=== PATIENT | female | born 1945 | race Hispanic/Latino ===

== ENCOUNTER 2019-04-19 20:39 | Inpatient (IN) | payer OTHER ==
[2019-04-19] MEDS ORDERED: FENTANYL CITR 100 MCG/2 ML ONE (22:45)
[2019-04-19] MEDS ORDERED: NA CHLORIDE 0.9% 500 ML ONE (22:45)
[2019-04-19] MEDS ORDERED: CEFTRIAXONE/SWI 1gm 1 GM/10 ML SYR ONE (22:46)
[2019-04-19] MEDS ORDERED: NA CHLORIDE 0.9% 1,000 ML ONE (22:46)
[2019-04-19] MEDS ORDERED: METRONIDAZOLE 500mg IVPB 500 MG/100 ML BAG IV ONE (22:46)
[2019-04-19 23:15] LABS: Protime INR 0.99
[2019-04-19 23:16] LABS: Absolute Lymphocytes (CBC) 1.8 K/uL (0.7-4.9); Absolute Monocytes 0.7 K/uL (0.1-1.3); Absolute Neutrophil 10.5 K/uL (1.8-8.0); Basophils % 0.2 % (0-1.3); Eosinophils % 0.9 % (0-4.4); Lymphocytes % 13.5 % (15.3-44.8); MPV 11.1 fL (7.6-11.3); Monocytes % 5.6 % (3.3-12.3); RBC Red Blood Cell Count 4.66 M/uL (3.86-4.86)
[2019-04-19 23:18] LABS: ALT/SGPT 26 U/L (12-78); AST/SGOT 15 U/L (15-37); Albumin 3.4 g/dL (3.4-5.0); Alkaline Phosphatase 105 U/L (45-117); BUN Blood Urea Nitrogen 16 mg/dL (7-18); Bicarbonate 25 mmol/L (21-32); Bilirubin Direct 0.1 mg/dL (0-0.2); Bilirubin Total 0.5 mg/dL (0.2-1.0); Glucose Level 108 mg/dL (74-106); Lipase 115 U/L (73-393); Magnesium 1.8 mg/dL (1.8-2.4); NT PRO-BNP 124 pg/mL (<125); Potassium 3.1 mmol/L (3.5-5.1); Protein, Total 7.6 g/dL (6.4-8.2); Sodium Level 141 mmol/L (136-145); Troponin (Emerg Dept Use Only) < 0.02 ng/mL (0.0-0.045)
[2019-04-19] MEDS ORDERED: ONDANSETRON 4 MG/2 ML VIAL ONE (23:27)
[2019-04-19 23:33] LABS: Urine Blood TRACE (NEG); Urine Glucose NEGATIVE (NEG); Urine Protein TRACE (NEG); Urine Specific Gravity 1.025 (1.005-1.030); Urine pH 5.5 (5.0-7.0)
[2019-04-19] MEDS ORDERED: CIPROFLOXACIN 400mg IV 400 MG/200 ML BAG IV ONE (23:33)
[2019-04-20] MEDS ORDERED: NS KCL 20MEQ 1,000 ML IV ONE (00:21)
[2019-04-20] MEDS ORDERED: KCL 20 MEQ/100 mL IVPB 20 MEQ/100 ML BAG IV ONE (00:21)
--- NOTE | 2019-04-20 01:25 | ER ---
Nurse's Notes [facility] Name: Catie Cerna Age: 74 yrs Sex: Female : 1945 Arrival Date: 04/19/2019 Time: 20:43 Bed 15 Private MD: Solis Mccain Diagnosis: Abdominal tenderness;Diverticulitis of large intestine without perforation or abscess without bleeding-proximal sigmoid;Type 2 diabetes mellitus Presentation: 04/19 20:46 Presenting complaint: Child states: "She has had lower abdominal pain for about an hour jd3 and a half. no nausea, vomiting, diarrhea.". Transition of care: patient was not received from another setting of care. Onset of symptoms was April 19, 2019. Risk Assessment: Do you want to hurt yourself or someone else? Patient reports no desire to harm self or others. Initial Sepsis Screen: Does the patient meet any 2 criteria? No. Patient's initial sepsis screen is negative. Does the patient have a suspected source of infection? No. Patient's initial sepsis screen is negative. Care prior to arrival: None. 20:46 Method Of Arrival: Wheelchair jd3 20:46 Acuity: DARLINE 3 jd3 Triage Assessment: 20:58 General: Appears in no apparent distress. uncomfortable. Pain: Complains of pain in wh right lower quadrant and left lower quadrant Pain does not radiate. Pain currently is 9 out of 10 on a pain scale. Quality of pain is described as aching, Pain began 2 hours ago. Historical: - Allergies: 20:48 No Known Allergies; jd3 - PMHx: 20:48 Dementia; High Cholesterol; Diabetes - NIDDM; Hypertension; Anxiety; jd3 - PSHx: 20:48 Cholecystectomy; ; jd3 - Immunization history:: Adult Immunizations up to date. - Social history:: Smoking status: Patient uses tobacco products, smokes one pack cigarettes per day. - Ebola Screening: : Patient negative for fever greater than or equal to 101.5 degrees Fahrenheit, and additional compatible Ebola Virus Disease symptoms. - Family history:: not pertinent. Screenin:58 Abuse screen: Denies threats or abuse. Denies injuries from another. Nutritional wh screening: No deficits noted. Tuberculosis screening: No symptoms or risk factors identified. Fall Risk None identified. Assessment: 21:04 Neuro: Level of Consciousness is awake, alert, obeys commands, Oriented to person, wh place, time, situation. Cardiovascular: Heart tones S1 S2 Capillary refill < 3 seconds. Respiratory: Airway is patent Respiratory effort is even, unlabored, Respiratory pattern is regular, symmetrical, Breath sounds are clear bilaterally. GI: Bowel sounds present X 4 quads. Abd is soft and non tender X 4 quads. Reports lower abdominal pain, since 2 hours ago. : No signs and/or symptoms were reported regarding the genitourinary system. EENT: No signs and/or symptoms were reported regarding the EENT system. Derm: Skin is intact, is healthy with good turgor, Skin is pink, warm \\T\\ dry. normal. Musculoskeletal: Range of motion: intact in all extremities. 22:09 Reassessment: Patient appears in no apparent distress at this time. Patient and/or wh family updated on plan of care and expected duration. Pain level reassessed. Patient is alert, oriented x 3, equal unlabored respirations, skin warm/dry/pink. 23:31 Reassessment: Patient appears in no apparent distress at this time. Patient and/or wh family updated on plan of care and expected duration. Pain level reassessed. Patient is alert, oriented x 3, equal unlabored respirations, skin warm/dry/pink. 04/20 00:25 General: Appears in no apparent distress. comfortable, Behavior is calm, cooperative, jd3 appropriate for age. Pain: Denies pain. Neuro: Level of Consciousness is awake, alert, obeys commands, Oriented to person, place, time, situation. Cardiovascular: Denies chest pain, Capillary refill < 3 seconds Patient's skin is warm and dry. Respiratory: Airway is patent Respiratory effort is even, unlabored, Respiratory pattern is regular, symmetrical, Denies shortness of breath. GI: Abdomen is round obese, Patient currently denies abdominal pain, constipation, diarrhea, nausea, vomiting. : No signs and/or symptoms were reported regarding the genitourinary system. EENT: No signs and/or symptoms were reported regarding the EENT system. Derm: Skin is intact, Skin is dry, Skin is normal, Skin temperature is warm. Musculoskeletal: Circulation, motion, and sensation intact. Range of motion: intact in all extremities. 01:21 Reassessment: Patient appears in no apparent distress at this time. Patient and/or jd3 family updated on plan of care and expected duration. Pain level reassessed. Patient is alert, oriented x 3, equal unlabored respirations, skin warm/dry/pink. provider at bedside. 02:26 Reassessment: Patient appears in no apparent distress at this time. Patient and/or jd3 family updated on plan of care and expected duration. Pain level reassessed. Patient is alert, oriented x 3, equal unlabored respirations, skin warm/dry/pink. awaiting room assignment. IV fluids infusing at order rate. no pain reported. even and unlabored respirations. 03:39 Reassessment: Patient appears in no apparent distress at this time. Patient and/or jd3 family updated on plan of care and expected duration. Pain level reassessed. Patient is alert, oriented x 3, equal unlabored respirations, skin warm/dry/pink. awaiting room assignment. 04:01 Reassessment: Patient appears in no apparent distress at this time. Patient and/or jd3 family updated on plan of care and expected duration. Pain level reassessed. Patient is alert, oriented x 3, equal unlabored respirations, skin warm/dry/pink. charting continued in [facility]. Patient denies pain at this time. Vital Signs: 04/19 20:48 BP 140 / 78; Pulse 66; Resp 19 S; Temp 97.7(TE); Pulse Ox 99% on R/A; Weight 86.18 kg [facility] (R); Height 4 ft. 11 in. (149.86 cm) (R); Pain 10/10; 21:06 BP 156 / 62; Pulse 62; Resp 18; Temp 98.6; Pulse Ox 98% on R/A; wh 22:06 BP 145 / 67; Pulse 63; Resp 18; Pulse Ox 100% on R/A; wh 23:34 BP 137 / 84; Pulse 69; Resp 17; Pulse Ox 97% on R/A; wh 04/20 00:32 BP 121 / 83; Pulse 73; Resp 20 S; Pulse Ox 95% on R/A; Pain 0/10; jd3 01:20 BP 143 / 81; Pulse 70; Resp 20 S; Pulse Ox 98% on R/A; Pain 0/10; jd3 02:25 BP 135 / 69; Pulse 69; Resp 16 S; Pulse Ox 97% on R/A; Pain 0/10; jd3 03:38 BP 124 / 74; Pulse 70; Resp 19 S; Pulse Ox 97% on R/A; Pain 0/10; jd3 10:43 BP 128 / 72; Pulse 60; Resp 18; Temp 97.7(TE); Pulse Ox 99% on R/A; Pain 3/10; rb1 04/19 20:48 Body Mass Index 38.37 (86.18 kg, 149.86 cm) jd3 ED Course: 04/19 20:43 Patient arrived in ED. es 20:44 Solis Mccain MD is Private Physician. es 20:47 Triage completed. jd3 20:49 Arm band placed on. jd3 20:58 Autumn De Santiago is Primary Nurse. 20:59 Patient has correct armband on for positive identification. Pulse ox on. NIBP on. 21:10 Lukas Ellsworth MD is Attending Physician. trae 21:19 Radiology exam delayed due to lab results not completed at this time. (BUN/Creatinine) vm2 IV insertion attempt and/or patient not having appropriate IV at this time. 21:51 Radiology exam delayed due to lab results not completed at this time. (BUN/Creatinine). vm2 21:53 XRAY Chest (1 view) In Process Unspecified. EDMS 22:05 Inserted saline lock: 22 gauge in right antecubital area, using aseptic technique. Blood collected. 04/20 00:20 CT Abd/Pelvis - IV Contrast Only In Process Unspecified. EDMS 01:23 Katia Castaneda MD is Hospitalizing Provider. trae 03:59 No provider procedures requiring assistance completed. IV is patent, is intact, with jd3 fluids infusing freely, dressing clean and intact.. Patient admitted, IV remains in place. 11:06 No provider procedures requiring assistance completed. Patient admitted, IV remains in rb1 place. Administered Medications: Discontinued: NS 0.9% 1000 ml IV at 125 ml/hr continuous 04/19 22:40 Drug: NS 0.9% 500 ml Route: IV; Rate: bolus; Site: right antecubital; 23:36 Follow up: Response: No adverse reaction; IV Status: Completed infusion 22:41 Drug: Rocephin - (cefTRIAXone) 1 grams Route: IVPB; Infused Over: 30 mins; Site: right wh antecubital; 23:36 Follow up: Response: No adverse reaction 22:41 Drug: Flagyl 500 mg Volume: 100 ml; Route: IVPB; Rate: 200 ml/hr; Infused Over: 30 wh mins; Site: right antecubital; 23:37 Follow up: Response: No adverse reaction; IV Status: Completed infusion 22:41 Drug: fentaNYL (PF) 25 mcg Route: IVP; Site: right antecubital; 23:37 Follow up: Response: No adverse reaction 22:42 Not Given (Duplicate Order): fentaNYL (PF) 25 mcg IVP once 22:42 Drug: Zofran 4 mg Route: IVP; Site: right antecubital; 23:37 Follow up: Response: No adverse reaction 23:13 Drug: NS 0.9% 1000 ml Route: IV; Rate: 125 ml/hr; Site: right antecubital; 23:36 Follow up: Response: No adverse reaction; IV Status: Order to discontinue infusion 04/20 00:24 Follow up: Response: No adverse reaction; IV Status: Order to discontinue infusion; IV jd3 Intake: 125ml 04/19 23:23 Drug: Cipro 400 mg Volume: 200 ml; Route: IVPB; Infused Over: 60 mins; Site: right antecubital; 23:38 Follow up: Response: No adverse reaction; IV Status: Completed infusion 04/20 00:24 Drug: NS 0.9% with KCl 20 mEq/L 1000 ml Route: IV; Rate: 125 ml/hr; Site: right [facility] antecubital; 03:59 Follow up: Response: No adverse reaction; IV Status: Infusion continued upon admission jd3 00:24 Drug: Potassium Chloride 20 mEq Route: IV; Rate: per protocol; Site: right antecubital; jd3 02:24 Follow up: Response: No adverse reaction; IV Status: Completed infusion; IV Intake: jd3 100ml Intake: 00:24 IV: 125ml; Total: 125ml. jd3 02:24 IV: 100ml; Total: 225ml. jd3 Outcome: 01:25 Decision to Hospitalize by Provider. trae 04:00 Admitted to ER Hold. Please see [facility] for further documentation. jd3 04:00 Condition: stable 04:00 Instructed on the need for admit, Demonstrated understanding of instructions. 11:05 Patient left the ED. rb1 11:06 Admitted to Med/surg accompanied by tech, family with patient, via wheelchair, room rb1 201, with chart, Report called to CLAYTON Cornejo 11:06 Condition: stable 11:06 Instructed on the need for admit. Signatures: Dispatcher [employer] Lukas Valero MD MD cha Salyer, Angelic Rosenberg, RN RN rb1 Briana Arauz [facility] Autumn De Santiago Jonathon, RN RN jd3
--- NOTE | 2019-04-20 01:26 | EDPHYS ---
Physician Documentation [facility] Name: Catie Cerna Age: 74 yrs Sex: Female : 1945 Arrival Date: 04/19/2019 Time: 20:43 Bed 15 Private MD: Solis Mccain ED Physician Lukas Ellsworth HPI: 04/19 21:57 This 74 yrs old Female presents to ER via Wheelchair with complaints of trae Abdominal Pain. 21:57 The patient presents with abdominal pain in the lower abdomen. Onset: The trae symptoms/episode began/occurred just prior to arrival. The symptoms do not radiate. Associated signs and symptoms: none. The symptoms are described as crampy, dull. Modifying factors: The symptoms are alleviated by nothing, the symptoms are aggravated by nothing. Severity of pain: At its worst the pain was moderate in the emergency department the pain has improved mildly. The patient has not experienced similar symptoms in the past. Historical: - Allergies: 20:48 No Known Allergies; jd3 - PMHx: 20:48 Dementia; High Cholesterol; Diabetes - NIDDM; Hypertension; Anxiety; jd3 - PSHx: 20:48 Cholecystectomy; ; jd3 - Immunization history:: Adult Immunizations up to date. - Social history:: Smoking status: Patient uses tobacco products, smokes one pack cigarettes per day. - Ebola Screening: : Patient negative for fever greater than or equal to 101.5 degrees Fahrenheit, and additional compatible Ebola Virus Disease symptoms. - Family history:: not pertinent. ROS: 21:57 Constitutional: Negative for fever, chills, and weight loss, Eyes: Negative for injury, trae pain, redness, and discharge, ENT: Negative for injury, pain, and discharge, Neck: Negative for injury, pain, and swelling, Cardiovascular: Negative for chest pain, palpitations, and edema, Respiratory: Negative for shortness of breath, cough, wheezing, and pleuritic chest pain, Back: Negative for injury and pain, : Negative for injury, bleeding, discharge, and swelling, MS/Extremity: Negative for injury and deformity, Skin: Negative for injury, rash, and discoloration, Neuro: Negative for headache, weakness, numbness, tingling, and seizure, Psych: Negative for depression, anxiety, suicide ideation, homicidal ideation, and hallucinations, Allergy/Immunology: Negative for hives, rash, and allergies, Endocrine: Negative for neck swelling, polydipsia, polyuria, polyphagia, and marked weight changes, Hematologic/Lymphatic: Negative for swollen nodes, abnormal bleeding, and unusual bruising. 21:57 Abdomen/GI: Positive for abdominal pain, of the right lower quadrant and left lower quadrant. Exam: 21:57 Constitutional: This is a well developed, well nourished patient who is awake, alert, trae and in no acute distress. Head/Face: Normocephalic, atraumatic. Eyes: Pupils equal round and reactive to light, extra-ocular motions intact. Lids and lashes normal. Conjunctiva and sclera are non-icteric and not injected. Cornea within normal limits. Periorbital areas with no swelling, redness, or edema. ENT: Nares patent. No nasal discharge, no septal abnormalities noted. Tympanic membranes are normal and external auditory canals are clear. Oropharynx with no redness, swelling, or masses, exudates, or evidence of obstruction, uvula midline. Mucous membranes moist. Neck: Trachea midline, no thyromegaly or masses palpated, and no cervical lymphadenopathy. Supple, full range of motion without nuchal rigidity, or vertebral point tenderness. No Meningismus. Chest/axilla: Normal chest wall appearance and motion. Nontender with no deformity. No lesions are appreciated. Cardiovascular: Regular rate and rhythm with a normal S1 and S2. No gallops, murmurs, or rubs. Normal PMI, no JVD. No pulse deficits. Respiratory: Lungs have equal breath sounds bilaterally, clear to auscultation and percussion. No rales, rhonchi or wheezes noted. No increased work of breathing, no retractions or nasal flaring. Back: No spinal tenderness. No costovertebral tenderness. Full range of motion. Female : Normal external genitalia. Skin: Warm, dry with normal turgor. Normal color with no rashes, no lesions, and no evidence of cellulitis. MS/ Extremity: Pulses equal, no cyanosis. Neurovascular intact. Full, normal range of motion. Neuro: Awake and alert, GCS 15, oriented to person, place, time, and situation. Cranial nerves II-XII grossly intact. Motor strength 5/5 in all extremities. Sensory grossly intact. Cerebellar exam normal. Normal gait. Psych: Awake, alert, with orientation to person, place and time. Behavior, mood, and affect are within normal limits. 21:57 Abdomen/GI: Inspection: abdomen appears normal, Bowel sounds: normal, Palpation: moderate abdominal tenderness, in the right lower quadrant and left lower quadrant, Liver: no appreciated palpable abnormalities, Hernia: not appreciated. 04/20 01:21 Abdomen/GI: Palpation: voluntary guarding, is elicited in the right lower quadrant and trae left lower quadrant. Vital Signs: 04/19 20:48 BP 140 / 78; Pulse 66; Resp 19 S; Temp 97.7(TE); Pulse Ox 99% on R/A; Weight 86.18 kg jd3 (R); Height 4 ft. 11 in. (149.86 cm) (R); Pain 10/10; 21:06 BP 156 / 62; Pulse 62; Resp 18; Temp 98.6; Pulse Ox 98% on R/A; wh 22:06 BP 145 / 67; Pulse 63; Resp 18; Pulse Ox 100% on R/A; wh 23:34 BP 137 / 84; Pulse 69; Resp 17; Pulse Ox 97% on R/A; wh 04/20 00:32 BP 121 / 83; Pulse 73; Resp 20 S; Pulse Ox 95% on R/A; Pain 0/10; jd3 01:20 BP 143 / 81; Pulse 70; Resp 20 S; Pulse Ox 98% on R/A; Pain 0/10; jd3 02:25 BP 135 / 69; Pulse 69; Resp 16 S; Pulse Ox 97% on R/A; Pain 0/10; jd3 03:38 BP 124 / 74; Pulse 70; Resp 19 S; Pulse Ox 97% on R/A; Pain 0/10; jd3 10:43 BP 128 / 72; Pulse 60; Resp 18; Temp 97.7(TE); Pulse Ox 99% on R/A; Pain 3/10; rb1 04/19 20:48 Body Mass Index 38.37 (86.18 kg, 149.86 cm) jd3 MDM: 04/19 21:10 Patient medically screened. [facility] 21:57 Data reviewed: vital signs, nurses notes, lab test result(s), EKG, radiologic studies. [facility] 04/19 21:14 Order name: Basic Metabolic Panel [facility] 04/19 21:14 Order name: CBC with Diff [facility] 04/19 21:14 Order name: LFT's [facility] 04/19 21:14 Order name: Magnesium [facility] 04/19 21:14 Order name: NT PRO-BNP [facility] 04/19 21:14 Order name: PT-INR; Complete Time: 23:35 [facility] 04/19 21:14 Order name: Troponin (emerg Dept Use Only); Complete Time: 23:35 [facility] 04/19 21:14 Order name: Lipase; Complete Time: 23:35 [facility] 04/19 21:14 Order name: Urine Culture [facility] 04/19 21:17 Order name: Basic Metabolic Panel; Complete Time: 23:35 EDMS 04/19 21:17 Order name: CBC with Automated Diff; Complete Time: 23:35 EDMD 04/19 21:17 Order name: Liver (Hepatic) Function; Complete Time: 23:35 EDMS 04/19 21:17 Order name: Magnesium; Complete Time: 23:35 EDMD 04/19 21:17 Order name: NT PRO-BNP; Complete Time: 23:35 EDMD 04/19 21:14 Order name: XRAY Chest (1 view) [facility] 04/19 21:14 Order name: EKG; Complete Time: 21:18 [facility] 04/19 21:14 Order name: Cardiac monitoring; Complete Time: 22:23 [facility] 04/19 21:14 Order name: EKG - Nurse/Tech; Complete Time: 22:24 [facility] 04/19 21:14 Order name: CT Abd/Pelvis - IV Contrast Only [facility] 04/19 21:54 Order name: Urine Dipstick--Ancillary (enter results); Complete Time: 23:35 [facility] 04/19 21:14 Order name: IV Saline Lock; Complete Time: 22:24 [facility] 04/19 21:14 Order name: Labs collected and sent; Complete Time: 22:24 [facility] 04/19 21:14 Order name: O2 Per Protocol; Complete Time: 22:24 [facility] 04/19 21:14 Order name: O2 Sat Monitoring; Complete Time: 22:24 [facility] 04/19 21:14 Order name: Urine Dipstick-Ancillary (obtain specimen); Complete Time: 22:24 [facility] Administered Medications: Discontinued: NS 0.9% 1000 ml IV at 125 ml/hr continuous 22:40 Drug: NS 0.9% 500 ml Route: IV; Rate: bolus; Site: right antecubital; 23:36 Follow up: Response: No adverse reaction; IV Status: Completed infusion 22:41 Drug: Rocephin - (cefTRIAXone) 1 grams Route: IVPB; Infused Over: 30 mins; Site: right antecubital; 23:36 Follow up: Response: No adverse reaction 22:41 Drug: Flagyl 500 mg Volume: 100 ml; Route: IVPB; Rate: 200 ml/hr; Infused Over: 30 wh mins; Site: right antecubital; 23:37 Follow up: Response: No adverse reaction; IV Status: Completed infusion 22:41 Drug: fentaNYL (PF) 25 mcg Route: IVP; Site: right antecubital; 23:37 Follow up: Response: No adverse reaction 22:42 Not Given (Duplicate Order): fentaNYL (PF) 25 mcg IVP once 22:42 Drug: Zofran 4 mg Route: IVP; Site: right antecubital; 23:37 Follow up: Response: No adverse reaction 23:13 Drug: NS 0.9% 1000 ml Route: IV; Rate: 125 ml/hr; Site: right antecubital; 23:36 Follow up: Response: No adverse reaction; IV Status: Order to discontinue infusion 04/20 00:24 Follow up: Response: No adverse reaction; IV Status: Order to discontinue infusion; IV jd3 Intake: 125ml 04/19 23:23 Drug: Cipro 400 mg Volume: 200 ml; Route: IVPB; Infused Over: 60 mins; Site: right antecubital; 23:38 Follow up: Response: No adverse reaction; IV Status: Completed infusion 04/20 00:24 Drug: NS 0.9% with KCl 20 mEq/L 1000 ml Route: IV; Rate: 125 ml/hr; Site: right jd3 antecubital; 03:59 Follow up: Response: No adverse reaction; IV Status: Infusion continued upon admission jd3 00:24 Drug: Potassium Chloride 20 mEq Route: IV; Rate: per protocol; Site: right antecubital; jd3 02:24 Follow up: Response: No adverse reaction; IV Status: Completed infusion; IV Intake: jd3 100ml Disposition: 04/20/19 01:25 Hospitalization ordered by Divinski, Ianir for Inpatient Admission. Preliminary diagnosis are Abdominal tenderness, Diverticulitis of large intestine without perforation or abscess without bleeding - proximal sigmoid, Type 2 diabetes mellitus. - Bed requested for Telemetry/MedSurg (Inpatient). - Status is Inpatient Admission. rb1 - Condition is Fair. - Problem is new. - Symptoms have improved. UTI on Admission? No Signatures: Dispatcher [employer] EDLukas Hardy MD MD cha Solis, Maria ms Barber, Rebecca, RN RN rb1 Autumn De Santiago Cuco Clifford RN RN jd3 Corrections: (The following items were deleted from the chart) 07:08 01:25 Hospitalization Ordered by Katia Castaneda MD for Inpatient Admission. Preliminary ms diagnosis is Abdominal tenderness; Diverticulitis of large intestine without perforation or abscess without bleeding - proximal sigmoid; Type 2 diabetes mellitus. Bed requested for Telemetry/MedSurg (Inpatient). Status is Inpatient Admission. Condition is Fair. Problem is new. Symptoms have improved. UTI on Admission? No. [facility] 10:35 07:08 04/20/2019 01:25 Hospitalization Ordered by Katia Castaneda MD for Inpatient ms Admission. Preliminary diagnosis is Abdominal tenderness; Diverticulitis of large intestine without perforation or abscess without bleeding - proximal sigmoid; Type 2 diabetes mellitus. Bed requested for [facility] ER HOLD. Status is Inpatient Admission. Condition is Fair. Problem is new. Symptoms have improved. UTI on Admission? No. ms 11:05 10:35 04/20/2019 01:25 Hospitalization Ordered by Katia Castaneda MD for Inpatient rb1 Admission. Preliminary diagnosis is Abdominal tenderness; Diverticulitis of large intestine without perforation or abscess without bleeding - proximal sigmoid; Type 2 diabetes mellitus. Bed requested for Telemetry/MedSurg (Inpatient). Status is Inpatient Admission. Condition is Fair. Problem is new. Symptoms have improved. UTI on Admission? No. ms
--- NOTE | 2019-04-20 03:26 | P.HP ---
Certification for Inpatient Patient admitted to: Inpatient With expected LOS: >2 Midnights Practitioner: I am a practitioner with admitting privileges, knowledge of patient current condition, hospital course, and medical plan of care. Services: Services provided to patient in accordance with Admission requirements found in Title 42 Section 412.3 of the Code of Federal Regulations Patient History Date of Service: 04/20/19 Reason for admission: diverticulitis History of Present Illness: Ms Cerna is a 74 years old woman with history of dementia, dyslipidemia, DM II , HTN, who start with lower abdominal pain yesterday afternoon. The pain was constant, 9/10 of intensity, no radiated, denied nausea, vomiting, fever or chills. The patient has had 1 episode of diarrhea. Lab work shows leukocytosis, and hypokalemia. CT abd/pelvis consistent with proximal sigmoid diverticulitis. Home medications list reviewed: Yes - Past Medical/Surgical History -: DM II -: HTN -: Dyslipidemia -: dementia -: Cholecystectomy -: - Family History Family History: Reviewed- Non-Contributory - Social History Smoking Status: Current every day smoker Counseled patient to stop smoking for: less than 10 minutes Smoking therapy provided: Yes Patient receptive to therapy: No Alcohol use: No CD- Drugs: No Place of Residence: Home Review of Systems 10-point ROS is otherwise unremarkable Physical Examination - Physical Exam General: Alert, In no apparent distress HEENT: Atraumatic, PERRLA, Mucous membr. moist/pink, EOMI, Sclerae nonicteric Neck: Supple, 2+ carotid pulse no bruit, No LAD, Without JVD or thyroid abnormality Respiratory: Clear to auscultation bilaterally, Normal air movement Cardiovascular: Regular rate/rhythm, Normal S1 S2 Gastrointestinal: Normal bowel sounds, Tenderness (lower abdomen) Musculoskeletal: No tenderness Integumentary: No rashes Neurological: Normal gait, Normal speech, Normal strength at 5/5 x4 extr, Normal tone, Normal affect Lymphatics: No axilla or inguinal lymphadenopathy - Studies Laboratory Data (last 24 hrs) 04/19/19 22:20: PT 11.7, INR 0.99 04/19/19 22:20: WBC 13.2 H, Hgb 14.7, Hct 44.0, Plt Count 200 04/19/19 22:20: Sodium 141, Potassium 3.1 L, BUN 16, Creatinine 0.78, Glucose 108 H, Magnesium 1.8, Total Bilirubin 0.5, AST 15, ALT 26, Alkaline Phosphatase 105, Lipase 115 Assessment and Plan - Problems (Diagnosis) (1) Diverticulitis large intestine Current Visit: Yes Status: Acute Qualifiers: Diverticulitis bleeding: without bleeding Diverticulitis complication: without perforation or abscess Qualified Code(s): K57.32 - Diverticulitis of large intestine without perforation or abscess without bleeding (2) Tobacco abuse Current Visit: Yes Status: Acute (3) Diabetes mellitus Current Visit: Yes Status: Acute Qualifiers: Diabetes mellitus type: type 2 Diabetes mellitus complication status: with other specified complication (4) HTN (hypertension) Current Visit: Yes Status: Acute Qualifiers: Hypertension type: essential hypertension Qualified Code(s): I10 - Essential (primary) hypertension - Plan Will admit the patient due to acute diverticulitis. Will order IV Cipro and Flagyl. Continue IV fluids and symptomatic medication for pain. - Advance Directives Does patient have a Living Will: No Does patient have a Durable POA for Healthcare: No - Code Status/Comfort Care Code Status Assessed: Yes Code Status: Full Code
[2019-04-20] MEDS ORDERED: ACETAMINOPHEN 500 MG TAB PO PRN (03:48)
[2019-04-20] MEDS ORDERED: ONDANSETRON 4 MG/2 ML VIAL IV PRN (03:48)
[2019-04-20] MEDS: KETOROLAC 30 MG/ML INJ IV PRN ×3 (04:33→20:56)
[2019-04-20] MEDS ORDERED: KETOROLAC 30 MG/ML INJ ONE (04:41)
[2019-04-20] MEDS ORDERED: MORPHINE 2 MG/ML SYR IV ONE (05:06)
[2019-04-20] MEDS ORDERED: MORPHINE 2 MG/ML SYR ONE (05:27)
[2019-04-20] MEDS: INSULIN -REGULAR HUMAN 50 UNIT/0.5 ML ML SQ SCH ×2 (07:30→11:30)
--- NOTE | 2019-04-20 08:07 | EKG ---
Test Date: 2019-04-19 Test Time: 20:34:13 Individualized Education Plan Aide: TANIYA MEASUREMENT RESULTS: Intervals: Rate: 70 IN: 168 QRSD: 92 QT: 410 QTc: 442 [place]: P: 77 IN: 168 QRS: 50 T: 43 INTERPRETIVE STATEMENTS: Normal sinus rhythm Normal ECG No previous ECG available for comparison Electronically Signed On 04-20-19 08:06:37 CDT by Raymon Jimenez
[2019-04-20] MEDS: CIPROFLOXACIN 400mg IV 400 MG/200 ML BAG IV SCH ×2 (09:00→20:56)
[2019-04-20] MEDS: ENOXAPARIN 40 MG/0.4 ML SQ SCH (09:00)
[2019-04-20] MEDS: METRONIDAZOLE 500mg IVPB 500 MG/100 ML BAG IV SCH ×2 (09:00→17:09)
[2019-04-20] MEDS ORDERED: ENOXAPARIN 40 MG/0.4 ML SQ ONE (09:39)
[2019-04-20] MEDS ORDERED: CIPROFLOXACIN 400mg IV 400 MG/200 ML BAG IV ONE (09:40)
[2019-04-20] MEDS ORDERED: METRONIDAZOLE 500mg IVPB 500 MG/100 ML BAG IV ONE (09:40)
[2019-04-20] MEDS ORDERED: MAGNESIUM SULFATE 1 gm IVPB 1 GM/100 ML BAG IV ONE (11:29)
--- NOTE | 2019-04-20 11:48 | RAD REPORT ---
EXAM DESCRIPTION: RAD - Chest Single View - 04/19/2019 9:52 pm CLINICAL HISTORY: ABDOMINAL DISTENTION Chest pain. COMPARISON: No comparisons FINDINGS: Portable technique limits examination quality. The lungs are mildly emphysematous but grossly clear. The heart is upper limit of normal in size. No displaced fractures.
--- NOTE | 2019-04-20 15:52 | P.PN ---
Date of Service: 04/20/19 pt wasseen earlier this am by my colleague DR Pretty 74 Y/o woman with PMHx of HTN,HLD admitted for acute diverticulitis pt seen and examined IVF hydration IV abx cipro and flagyl advance diet as tolerated
[2019-04-20 17:39] LABS: Absolute Neutrophil 5.1 K/uL (1.8-8.0); Basophils % 0.2 % (0-1.3); Eosinophils % 1.7 % (0-4.4); Hematocrit 42.9 % (36.0-45.0); Lymphocytes % 24.7 % (15.3-44.8); MPV 10.9 fL (7.6-11.3); Monocytes % 11.7 % (3.3-12.3); RBC Red Blood Cell Count 4.51 M/uL (3.86-4.86)
[2019-04-20 20:46] LABS: Potassium 3.6 mmol/L (3.5-5.1)
[2019-04-20] MEDS: ATORVASTATIN 10 MG TAB PO SCH (20:55)
[2019-04-20] MEDS: DONEPEZIL HCL 5 MG TAB PO SCH (20:55)
[2019-04-20] MEDS ORDERED: POTASSIUM 25 MEQ EFFERV TAB PO ONE (23:32)
[2019-04-21] MEDS: METRONIDAZOLE 500mg IVPB 500 MG/100 ML BAG IV SCH ×3 (00:51→16:18)
[2019-04-21] MEDS: SIMETHICONE 80 MG TAB PO PRN ×4 (01:08→23:28)
[2019-04-21 04:15] LABS: Absolute Lymphocytes (CBC) 1.3 K/uL (0.7-4.9); Absolute Monocytes 0.8 K/uL (0.1-1.3); Absolute Neutrophil 5.4 K/uL (1.8-8.0); Basophils % 0.4 % (0-1.3); Eosinophils % 1.9 % (0-4.4); Hematocrit 40.2 % (36.0-45.0); Lymphocytes % 17.4 % (15.3-44.8); MPV 10.2 fL (7.6-11.3); Monocytes % 10.8 % (3.3-12.3); RBC Red Blood Cell Count 4.22 M/uL (3.86-4.86)
[2019-04-21 04:35] LABS: Magnesium 2.1 mg/dL (1.8-2.4); Potassium 3.8 mmol/L (3.5-5.1)
[2019-04-21] MEDS ORDERED: POTASSIUM 25 MEQ EFFERV TAB PO ONE (05:43)
[2019-04-21] MEDS: LEVOTHYROXINE SOD 0.1 MG TAB PO SCH (06:33)
[2019-04-21] MEDS: CIPROFLOXACIN 400mg IV 400 MG/200 ML BAG IV SCH ×2 (08:59→21:52)
[2019-04-21] MEDS: ESCITALOPRAM 20 MG TAB PO SCH (09:00)
[2019-04-21] MEDS: ENOXAPARIN 40 MG/0.4 ML SQ SCH (09:00)
[2019-04-21] MEDS: METOPROLOL XL 100 MG TAB PO SCH (09:00)
[2019-04-21] MEDS: LISINOPRIL 20 MG TAB PO SCH (09:00)
[2019-04-21] MEDS: AMLODIPINE 5 MG TAB PO SCH (09:01)
[2019-04-21] MEDS: KETOROLAC 30 MG/ML INJ IV PRN ×2 (09:16→21:50)
[2019-04-21] MEDS: MORPHINE 2 MG/ML SYR IV PRN ×2 (10:35→16:27)
--- NOTE | 2019-04-21 11:05 | P.PN ---
Subjective Date of Service: 04/21/19 Chief Complaint: diverticulitis pt seen and examined still having diarrhea but abdominal pain was better diet advanced to full liquid f/up stool for cdiff Review of Systems 10-point ROS is otherwise unremarkable Physical Examination - Vital Signs Temperature: 97.1 F Blood Pressure: 145/65 Pulse: 66 Respirations: 17 Pulse Ox (%): 96 - Physical Exam General: Alert, Oriented x3 HEENT: Atraumatic, Normocephalic, PERRLA Neck: Supple, JVD not distended Respiratory: Clear to auscultation bilaterally, Normal air movement Cardiovascular: No edema, Regular rate/rhythm, Normal S1 S2 Gastrointestinal: Normal bowel sounds, Soft and benign, Non-distended Musculoskeletal: No clubbing, No swelling Integumentary: No rashes Neurological: Normal strength at 5/5 x4 extr - Studies Microbiology Data (last 24 hrs): 04/19/19 21:45 Clean Catch Urine Harrison Count - Final >100,000 CFU/ML. 04/19/19 21:45 Clean Catch Urine - Final Escherichia Coli Assessment And Plan - Plan asssessment /plan: acute diverticulitis HTN DM plan: IV cipro and flagyl IVF hydration f/up stool studies advance diet as tolerated zofran prn pain mx resume home meds for other medical problems dvt ppx Discharge Plan: Home Plan to discharge in: 48 Hours
[2019-04-21 11:31] LABS: Absolute Lymphocytes (CBC) 1.2 K/uL (0.7-4.9); Absolute Monocytes 0.6 K/uL (0.1-1.3); Absolute Neutrophil 4.2 K/uL (1.8-8.0); Basophils % 0.2 % (0-1.3); Eosinophils % 1.8 % (0-4.4); Lymphocytes % 19.1 % (15.3-44.8); MPV 10.4 fL (7.6-11.3); Monocytes % 9.3 % (3.3-12.3); RBC Red Blood Cell Count 3.98 M/uL (3.86-4.86)
[2019-04-21 11:45] LABS: Potassium 3.9 mmol/L (3.5-5.1)
[2019-04-21 16:25] LABS: Absolute Lymphocytes (CBC) 1.9 K/uL (0.7-4.9); Absolute Monocytes 0.8 K/uL (0.1-1.3); Absolute Neutrophil 3.8 K/uL (1.8-8.0); Basophils % 0.2 % (0-1.3); Eosinophils % 3.3 % (0-4.4); Hematocrit 39.6 % (36.0-45.0); Lymphocytes % 27.6 % (15.3-44.8); MPV 11.1 fL (7.6-11.3); Monocytes % 12.4 % (3.3-12.3); RBC Red Blood Cell Count 4.18 M/uL (3.86-4.86)
[2019-04-21] MEDS: ATORVASTATIN 10 MG TAB PO SCH (21:53)
[2019-04-21] MEDS: DONEPEZIL HCL 5 MG TAB PO SCH (21:53)
[2019-04-22] MEDS: METRONIDAZOLE 500mg IVPB 500 MG/100 ML BAG IV SCH ×2 (02:06→08:51)
[2019-04-22] MEDS: LEVOTHYROXINE SOD 0.1 MG TAB PO SCH (06:08)
[2019-04-22 06:57] LABS: Absolute Lymphocytes (CBC) 1.5 K/uL (0.7-4.9); Absolute Monocytes 0.7 K/uL (0.1-1.3); Basophils % 0.3 % (0-1.3); Eosinophils % 3.2 % (0-4.4); Hematocrit 38.2 % (36.0-45.0); Lymphocytes % 23.8 % (15.3-44.8); MPV 10.6 fL (7.6-11.3); Monocytes % 10.6 % (3.3-12.3)
[2019-04-22 07:18] LABS: Potassium 3.9 mmol/L (3.5-5.1)
[2019-04-22] MEDS: ENOXAPARIN 40 MG/0.4 ML SQ SCH (08:50)
[2019-04-22] MEDS: ESCITALOPRAM 20 MG TAB PO SCH (08:51)
[2019-04-22] MEDS: CIPROFLOXACIN 400mg IV 400 MG/200 ML BAG IV SCH (08:51)
[2019-04-22] MEDS: METOPROLOL XL 100 MG TAB PO SCH (08:51)
[2019-04-22] MEDS: LISINOPRIL 20 MG TAB PO SCH (08:51)
[2019-04-22] MEDS: AMLODIPINE 5 MG TAB PO SCH (08:51)
[2019-04-22] MEDS: SIMETHICONE 80 MG TAB PO PRN (09:01)
--- NOTE | 2019-04-22 12:04 | RAD REPORT ---
EXAM DESCRIPTION: CT ABDOMEN AND PELVIS WITH CONTRAST. 04/19/2019 CLINICAL HISTORY: Abdominal pain. COMPARISON: None. TECHNIQUE: Axial [address] imaging of the abdomen and pelvis performed utilizing intravenous contrast. Reformatted coronal and sagittal images reviewed. A dose reduction technique was utilized with automated exposure control according to patient size. FINDINGS: LOWER THORAX: Minimal bilateral lower lobe atelectasis. The heart is normal in size. ABDOMEN: LIVER/GALLBLADDER: Mildly decreased attenuation due to fatty infiltration. Mild intra and extrahepat ic biliary duct dilatation due to postcholecystectomy status. Common bile duct is 1.4 cm. No obstruct ing stone or mass. SPLEEN/PANCREAS: Normal spleen. Normal pancreas. KIDNEYS/ADRENAL GLANDS: Normal adrenal glands. Normal right and left kidney. RETROPERITONEAL VESSELS/NODES: Normal aorta and inferior vena cava caliber. No adenopathy. BOWEL: Small hiatal hernia. Normal stomach. Small bowel loops appear normal. Normal caliber appendix in the right lower quadrant. A few small intraluminal appendicoliths. Mild descending and proximal s igmoid colon diverticulosis. Short segment of posterior wall thickening within the proximal sigmoid w ith adjacent edema consistent with diverticulitis. No adjacent free air. No loculated fluid collectio n to suggest an abscess. MESENTERY/PERITONEUM: No adenopathy. No ascites. No free air. Tiny fat-containing umbilical hernia. PELVIS: BLADDER: Normal bladder. GENITAL ORGANS: Heterogeneous mildly hyperdense left uterine fundal 4.6 cm mass consistent with fibr oid. Normal ovaries. PERITONEUM: No pelvic free fluid. No pelvic adenopathy. BONES AND SOFT TISSUES: Moderate lower thoracic and lumbar spondylosis. Vacuum disc changes within t he lower thoracic and lumbar spine. Multilevel mild lower lumbosacral diffuse disc bulges. Intact bon y pelvis. Complete evaluation is limited by motion artifact. Several buttock calcifications consisten t with injection granulomas. IMPRESSION: 1. Mild descending and sigmoid colon diverticulosis. Short segment of proximal sigmoid d iverticulitis. No evidence of free air or abscess. 2. Small hiatal hernia. 3. Mild hepatic steatosis. 4. Mild postcholecystectomy biliary dilatation. 5. Left uterine fibroid. Electronically signed by: Lizabeth Roman DO 04/20/2019 12:34 AM CDT Due to temporary technical issues with the PACS/Fluency reporting system, reports are being signed by the in house radiologist as a courtesy to ensure prompt reporting. The interpreting radiologist is f ully responsible for the content of the report.
--- NOTE | 2019-04-22 14:48 | P.DS ---
Admission Date: 04/20/19 Discharge Date: 04/22/19 Disposition: ROUTINE DISCHARGE Discharge Condition: GOOD Reason for Admission: diverticulitis Consultations: GI - Problems (1) UTI (urinary tract infection) Status: Acute (2) Acute kidney injury Status: Acute (3) Diabetes mellitus Status: Acute Qualifiers: Diabetes mellitus type: type 2 Diabetes mellitus complication status: with other specified complication (4) Diverticulitis large intestine Status: Acute Qualifiers: Diverticulitis bleeding: without bleeding Diverticulitis complication: without perforation or abscess Qualified Code(s): K57.32 - Diverticulitis of large intestine without perforation or abscess without bleeding (5) HTN (hypertension) Status: Acute Qualifiers: Hypertension type: essential hypertension Qualified Code(s): I10 - Essential (primary) hypertension (6) Tobacco abuse Status: Acute Brief History of Present Illness: 77 y/o woman with PMhx of DM,CKD,hepatorenal syndrom,liver cirrhosis who was transferred from [facility] for HD,pt was admitted for worsening renal failure and hyponatremia and was found with low Hgb .pt is [place] resident and mainly bed bound.pt was managed in [facility] for anemia and was given 2 units PRBC and for metabolic acidosis was given bicarb with ivf hydration but her renal function continued to worsens and decission was made to start the pt on HD discussed with DR Jones and he recommended sx consult to place HD catheter which can be done tomorrow at the time of my assessment pt denied any complains and was oriented to self only Hospital Course: Overall during the hospital stay patient remained stable Patient was initially admitted to the hospital for acute renal failure, hyponatremia, acute diverticulitis and urinary tract infection. For patient's symptomatic hyponatremia was started on IV fluids here in the hospital. Patient's hyponatremia did resolve here in the hospital with fluids. Patient was alert and oriented x3. Initially patient was having acute metabolic encephalopathy however which resolved after hyponatremia was corrected. For patient's acute renal failure again patient was on IV fluids which did improve her creatinine here in the hospital. Most likely secondary to dehydration secondary to her acute diverticulitis. For patient's acute diverticulitis patient was started on IV ciprofloxacin and Flagyl. Was kept NPO. When patient had some improvement in her diarrhea and abdominal pain patient diet was advanced to full liquid diet. Patient was able to tolerate the full liquid diet well and thus was advanced to a bland diet. At that time patient was able to tolerate her bland diet thus her medication was switched over to oral supplement Flagyl. Patient did not have any further diarrheal episode and no further abdominal pain was noted. Patient denies having any fever chills nausea vomiting at that time as well. Patient thus was discharged home under stable condition was given a prescription for p.o. ciprofloxacin and Flagyl Patient while here in the hospital also was found to have urinary tract infection which was positive for E. coli and was sensitive to oral ciprofloxacin. Patient was asked to follow up with primary care provider in about 1-2 days post discharge and was thus discharged home under stable condition. Patient will follow up colonoscopy in about 6 weeks which she was educated about as well. Vital Signs/Physical Exam: Temp Pulse Resp BP Pulse Ox 98.1 F 54 16 123/67 98 04/22/19 12:00 04/22/19 12:00 04/22/19 12:00 04/22/19 12:00 04/22/19 12:00 General: Alert, In no apparent distress HEENT: Atraumatic, PERRLA, EOMI Neck: Supple, JVD not distended Respiratory: Clear to auscultation bilaterally, Normal air movement Cardiovascular: Regular rate/rhythm, Normal S1 S2 Gastrointestinal: Normal bowel sounds, No tenderness Musculoskeletal: No tenderness Integumentary: No rashes Neurological: Normal speech, Normal tone, Normal affect Lymphatics: No axilla or inguinal lymphadenopathy Laboratory Data at Discharge: WBC 6.4 K/uL (4.3-10.9) 04/22/19 06:32 Hgb 12.8 g/dL (12.0-15.0) 04/22/19 06:32 Hct 38.2 % (36.0-45.0) 04/22/19 06:32 Plt Count 177 K/uL (152-406) 04/22/19 06:32 PT 11.7 SECONDS (9.5-12.5) 04/19/19 22:20 INR 0.99 04/19/19 22:20 Sodium 143 mmol/L (136-145) 04/22/19 06:32 Potassium 3.9 mmol/L (3.5-5.1) 04/22/19 06:32 BUN 6 mg/dL (7-18) L 04/22/19 06:32 Creatinine 0.72 mg/dL (0.55-1.3) 04/22/19 06:32 Glucose 101 mg/dL (74-106) 04/22/19 06:32 Magnesium 2.1 mg/dL (1.8-2.4) 04/21/19 04:08 Total Bilirubin 0.5 mg/dL (0.2-1.0) 04/19/19 22:20 AST 15 U/L (15-37) 04/19/19 22:20 ALT 26 U/L (12-78) 04/19/19 22:20 Alkaline Phosphatase 105 U/L (45-117) 04/19/19 22:20 Lipase 115 U/L (73-393) 04/19/19 22:20 Home Medications: Amlodipine Besylate 5 mg PO DAILY 04/20/19 Donepezil [Aricept*] 10 mg PO BEDTIME 04/20/19 Escitalopram [Lexapro*] 10 mg PO DAILY 04/20/19 Levothyroxine [Synthroid*] 100 mcg PO [id number] 04/20/19 Lisinopril 40 mg PO DAILY 04/20/19 Metoprolol Succinate [Toprol Xl] 100 mg PO DAILY 04/20/19 Pravastatin Sodium 20 mg PO DAILY 04/20/19 Ciprofloxacin HCl 500 mg PO BID #28 tablet 04/22/19 metroNIDAZOLE [Flagyl] 500 mg PO Q8H #42 tablet 04/22/19 New Medications: Ciprofloxacin HCl 500 mg PO BID #28 tablet metroNIDAZOLE [Flagyl] 500 mg PO Q8H #42 tablet Patient Discharge Instructions: Please f.u with PCP and GI doc in 1 to 2 week post discharge. New medication. Ciprofloxacin and Flagyl for 14 days. You will need a colonoscopy in 6 weeks. Diet: [place] Activity: Ad fredrick Followup: Rod Madden MD [ASSOCIATE-ACTIVE - CAN ADMIT] - 1 Week
== END 2019-04-22 13:47 | disposition home or self-care (01) | DRG 391 ==
LOC: ER 20:39 → ERHOLD 04-20 03:27 → 2ND 04-20 10:56
PROVIDERS: ADMIT Internal Medicine; ATTEND Internal Medicine
DX: K57.32 Diverticulitis of large intestine without perforation or abscess without bleeding (principal); G93.41 Metabolic encephalopathy; N39.0 Urinary tract infection, site not specified; E87.1 Hypo-osmolality and hyponatremia; N17.9 Acute kidney failure, unspecified; B96.20 Unspecified Escherichia coli [E. coli] as the cause of diseases classified elsewhere; E86.0 Dehydration; I10 Essential (primary) hypertension; E11.9 Type 2 diabetes mellitus without complications; F17.210 Nicotine dependence, cigarettes, uncomplicated
CPT/HCPCS: 36415; 71045; 74177; 80048; 80076; 81003; 82962; 83690; 83735; 83880; 84132; 84484; 85025; 85610; 87077; 87086; 87088; 87186; 87493; 93005; 96361; 96365; 96366; 96367; 96375; 99285; J0696; J0744; J1650; J2270; J2405; J3010; J3475; J7030; Q9967

== ENCOUNTER 2019-04-30 01:12 | Emergency (ER) | payer OTHER ==
--- OUTSIDE RECORDS SUMMARY | 2019-04-30 01:15 | XMS REPORT | Continuity of Care Document ---
:1945 Author Organization Interface Problems Problem Status Onset Classification Date Comments Source Date Reported Dementia Active Problem 04/15/2019 [facility] HTN - Hypertension Active Problem 04/15/2019 [facility] Hyperlipidemia Active Problem 04/15/2019 [facility] Hypothyroidism Active Problem 04/15/2019 [facility] PBA (<span Active Problem 04/15/2019 [facility] ID="[id number]"> Neuro Confirmed</span>) Memory loss Active Problem 04/15/2019 [facility] Morbid obesity Active Problem 04/15/2019 [facility] Medications Medication Details Route Status Patient Ordering Order Source Instructions Provider Date Donepezil 10 mg=1 Active [facility] hydrochloride 10 tab, PO, 019 [facility] MG Oral Tablet Bedtime, # [Aricept] 30 tab, 4 Refill(s), Pharmacy: [id number] escitalopram 10 10 mg=1 Active [facility] mg oral tablet tab, PO, 018 [facility] Daily, # 30 tab, 0 Refill(s) lisinopril 40 mg 40 mg=1 Active [facility] oral tablet tab, PO, 018 [facility] Daily, # 30 tab, 0 Refill(s) metoprolol 100 100 mg=1 Active [facility] mg oral tablet, tab, PO, 018 [facility] extended release Daily, # 30 tab, 0 Refill(s) amLODIPine 5 mg 5 mg=1 Active [facility] oral tablet tab, PO, 018 [facility] Daily, # 30 tab, 0 Refill(s) levothyroxine 88 88 Active [facility] mcg (0.088 mg) microgram= 018 [facility] oral tablet 1 tab, PO, Daily, # 30 tab, 0 Refill(s) pravastatin 20 20 mg=1 Active [facility] mg oral tablet tab, PO, 018 [facility] Bedtime, # 30 tab, 0 Refill(s) Allergies, Adverse Reactions, Alerts Substance Category Reaction Severity Reaction Status Date Comments Source type Reported No Known Assertion Drug [facility] Medication allergy Neuro Allergies Immunizations Immunization Date Given Site Status Last Updated Comments Source Results Order Results Value Reference Date Interpretation Comments Source Name Range Vital Signs Vital Sign Value Date Comments Source BMI Calculated 39.68 03/15/2019 [facility] Height 144.78 cm 03/15/2019 [facility] Weight 83.182 03/15/2019 [facility] Heart Rate 54 03/15/2019 [facility] Respitory Rate 16 03/15/2019 [facility] Systolic (mm Hg) 141 03/15/2019 [facility] Diastolic (mm Hg) 90 03/15/2019 [facility] Height 144.78 cm 09/25/2018 [facility] Weight 90.909 09/25/2018 [facility] BMI Calculated 43.37 09/25/2018 [facility] Heart Rate 79 09/25/2018 [facility] Respitory Rate 16 09/25/2018 [facility] Systolic (mm Hg) 118 09/25/2018 [facility] Diastolic (mm Hg) 89 09/25/2018 [facility] Encounters Location Location Encounter Encounter Reason Attending ADM DC Status Source Details Type Number For Provider Date Date Visit [facility] Outside [id number] 08/14 08/16 [facility] /2017 [facility] [place] Out[facility] [id number] TRAE 09/25 Active [facility] [place] [facility] Outpatient [id number] Trae 09/25 09/26 [facility] /2017 [facility] [place] Out[facility] [id number] TRAE 10/24 Active [facility] Outpatient [id number] TRAE 12/13 [facility] [place] Outpatient [id number] TRAE 01/23 [facility] [place] Outpatient [id number] Trae 03/15 [facility] [place] [facility] Outpatient [id number] Trae 03/15 03/16 [facility] /2018 [facility] [place] [facility] [id number] Trae 07/23 [facility] [place] Procedures Procedure Code Date Perfomer Comments Source
--- OUTSIDE RECORDS SUMMARY | 2019-04-30 01:15 | XMS REPORT | Summary of Care ---
:1945 Author Organization [facility] Address [address] [place] [address]- Encounter HQ Encntr_alias(FIN) [id number] Date(s): 08/14/18 - 08/15/18 [facility] [address], [place] [id number]- [phone] Vital Signs No data available for this section Problem List Condition Effective Dates Status Health Status Informant Dementia(Confirmed) Active HTN - Hypertension(Confirmed) Active Hyperlipidemia(Confirmed) Active Hypothyroidism(Confirmed) Active PBA (pseudobulbar affect)(Confirmed) Active Memory loss(Confirmed) Active Morbid obesity(Confirmed) Active Allergies, Adverse Reactions, Alerts No Known Medication Allergies Medications No data available for this section Results No data available for this section Immunizations No data available for this section Procedures No data available for this section Social History Social History Type Response Employment/School Status: Retired. Other: doesn't manage meds.1 Smoking Status Current every day smoker; Type: Cigarettes; Exposure to Tobacco Smoke None; Cigarette Smoking Last 365 Days Yes; Reg Smoking Cessation Counseling No entered on: 01/23/19 1no Will or POA; 4 children Assessment and Plan No data available for this section
--- OUTSIDE RECORDS SUMMARY | 2019-04-30 01:16 | XMS REPORT | Summary of Care ---
:1945 Author Organization [facility] Address [address] [place] [address]- Encounter [facility] Tosha(FIN) [id number] Date(s): 09/25/18 - 09/25/18 [facility] [address] [place], [place] [id number]- [phone] Discharge Disposition: Home or Self Care Attending Physician: Dale Mc MD Vital Signs Most recent to oldest [Reference Range]: 1 Height 144.78 cm (09/25/18 10:27 AM) Blood Pressure [90-140/60-90 mmHg] 118/89 mmHg (09/25/18 10:27 AM) Respiratory Rate [14-20 BRMIN] 16 BRMIN (09/25/18 10:27 AM) Peripheral Pulse Rate [60-100 bpm] 79 bpm (09/25/18 10:27 AM) Weight 90.909 kg (09/25/18 10:27 AM) Body Mass Index 43.37 m2 (09/25/18 10:27 AM) Problem List Condition Effective Dates Status Health Status Informant Dementia(Confirmed) Active HTN - Hypertension(Confirmed) Active Hyperlipidemia(Confirmed) Active Hypothyroidism(Confirmed) Active PBA (pseudobulbar affect)(Confirmed) Active Memory loss(Confirmed) Active Morbid obesity(Confirmed) Active Allergies, Adverse Reactions, Alerts No Known Medication Allergies Medications amLODIPine 5 mg oral tablet 5 mg=1 tab, PO, Daily, # 30 tab, 0 Refill(s) Start Date: 09/25/18 Status: Orderedescitalopram 10 mg oral tablet 10 mg=1 tab, PO, Daily, # 30 tab, 0 Refill(s) Start Date: 09/25/18 Status: Orderedlevothyroxine 88 mcg (0.088 mg) oral tablet 88 microgram=1 tab, PO, Daily, # 30 tab, 0 Refill(s) Start Date: 09/25/18 Status: Orderedlisinopril 40 mg oral tablet 40 mg=1 tab, PO, Daily, # 30 tab, 0 Refill(s) Start Date: 09/25/18 Status: Orderedmetoprolol 100 mg oral tablet, extended release 100 mg=1 tab, PO, Daily, # 30 tab, 0 Refill(s) Start Date: 09/25/18 Status: Orderedpravastatin 20 mg oral tablet 20 mg=1 tab, PO, Bedtime, # 30 tab, 0 Refill(s) Start Date: 09/25/18 Status: Ordered Results No data available for this section Immunizations No data available for this section Procedures No data available for this section Social History Social History Type Response Employment/School Status: Retired. Other: doesn't manage meds.1 Smoking Status Current every day smoker; Type: Cigarettes; Exposure to Tobacco Smoke None; Cigarette Smoking Last 365 Days Yes; Reg Smoking Cessation Counseling No entered on: 03/15/19 1no Will or POA; 4 children Assessment and Plan No data available for this section
--- OUTSIDE RECORDS SUMMARY | 2019-04-30 01:16 | XMS REPORT | Summary of Care ---
:1945 Author Organization [facility] Address [address] [place] [address]- Encounter [facility] Tosha(FIN) [id number] Date(s): 03/15/19 - 03/15/19 [facility] [address], [place] [id number]- [phone] Discharge Disposition: Home or Self Care Attending Physician: Dale Mc MD Referring Physician: Dale Mc MD Vital Signs Most recent to oldest [Reference Range]: 1 Height 144.78 cm (03/15/19 9:40 AM) Blood Pressure [90-140/60-90 mmHg] 141/90 mmHg *HI* (03/15/19 9:40 AM) Respiratory Rate [14-20 BRMIN] 16 BRMIN (03/15/19 9:40 AM) Peripheral Pulse Rate [60-100 bpm] 54 bpm *LOW* (03/15/19 9:40 AM) Weight 83.182 kg (03/15/19 9:40 AM) Body Mass Index 39.68 m2 (03/15/19 9:40 AM) Problem List Condition Effective Dates Status Health Status Informant Dementia(Confirmed) Active HTN - Hypertension(Confirmed) Active Hyperlipidemia(Confirmed) Active Hypothyroidism(Confirmed) Active PBA (pseudobulbar affect)(Confirmed) Active Memory loss(Confirmed) Active Morbid obesity(Confirmed) Active Allergies, Adverse Reactions, Alerts No Known Medication Allergies Medications Aricept 10 mg oral tablet 10 mg=1 tab, PO, Bedtime, # 30 tab, 4 Refill(s), Pharmacy: [id number] Start Date: 03/15/19 Stop Date: 08/12/19 Status: Ordered Results No data available for [...]
[2019-04-30] MEDS ORDERED: SIMETHICONE 80 MG TAB ONE (02:18)
[2019-04-30 02:48] LABS: Urine Culture Reflex Order NOT NEEDED
[2019-04-30 02:49] LABS: Urine Mucus 3+ /HPF (NONE SEEN)
[2019-04-30 02:50] LABS: Urine Bacteria 20-50 /HPF (<20)
--- NOTE | 2019-04-30 02:58 | ER ---
Nurse's Notes [facility] Name: Catie Gupta Age: 74 yrs Sex: Female : 1945 Arrival Date: 04/30/2019 Time: 01:14 Bed 16 Private MD: Solis Mccain Diagnosis: Gas pain;Urinary tract infection, site not specified Presentation: 04/30 01:47 Presenting complaint: Patient states: she is having lower abdominal pain x 1 hour bb denies vomiting or diarrhea, denies dysuria. Transition of care: patient was not received from another setting of care. Onset of symptoms was April 30, 2019. Risk Assessment: Do you want to hurt yourself or someone else? Patient reports no desire to harm self or others. Initial Sepsis Screen: Does the patient meet any 2 criteria? No. Patient's initial sepsis screen is negative. Does the patient have a suspected source of infection? No. Patient's initial sepsis screen is negative. Care prior to arrival: None. 01:47 Method Of Arrival: Ambulatory bb 01:47 Acuity: DARLINE 3 bb Historical: - Allergies: 01:48 No Known Allergies; bb - PMHx: 01:48 Anxiety; Dementia; Diabetes - NIDDM; High Cholesterol; Hypertension; bb - PSHx: 01:48 Cholecystectomy; ; bb - Immunization history:: Adult Immunizations unknown. - Social history:: Smoking status: unknown. - Ebola Screening: : No symptoms or risks identified at this time. Screenin:00 Abuse screen: Denies threats or abuse. Denies injuries from another. Nutritional ed1 screening: No deficits noted. Tuberculosis screening: No symptoms or risk factors identified. Fall Risk None identified. Assessment: 02:00 General: Appears uncomfortable, Behavior is calm, cooperative. Pain: Complains of pain ed1 in left lower quadrant and right lower quadrant Pain currently is 6 out of 10 on a pain scale. Neuro: Level of Consciousness is awake, alert, obeys commands, Oriented to person, place, time, situation. Cardiovascular: Denies chest pain, Heart tones S1 S2 present. Respiratory: Airway is patent Respiratory effort is even, unlabored, Respiratory pattern is regular, symmetrical, Breath sounds are clear bilaterally. GI: Abdomen is obese, Bowel sounds present X 4 quads. Abd is soft and non tender X 4 quads. Patient currently denies diarrhea, nausea, vomiting. : Denies burning with urination. EENT: No signs and/or symptoms were reported regarding the EENT system. Derm: Skin is intact, is healthy with good turgor, Skin is dry, Skin is normal, Skin temperature is warm. Musculoskeletal: Circulation, motion, and sensation intact. Range of motion: intact in all extremities. 02:51 Reassessment: Patient appears in no apparent distress at this time. Patient and/or ed1 family updated on plan of care and expected duration. Pain level reassessed. Patient is alert, oriented x 3, equal unlabored respirations, skin warm/dry/pink. Patient states feeling better. Patient states symptoms have improved. Vital Signs: 01:48 BP 122 / 70; Pulse 54; Resp 16 S; Temp 98(A); Pulse Ox 100% on R/A; Weight 81.65 kg bb (R); Pain 6/10; 02:51 BP 125 / 81; Pulse 63; Resp 16; Temp 97.5(O); Pulse Ox 100% on R/A; Pain 2/10; ed1 ED Course: 01:14 Patient arrived in ED. ds1 01:14 Solis Mccain MD is Private Physician. ds1 01:48 Triage completed. bb 01:48 Arm band placed on Patient placed in an exam room, on a stretcher, on pulse oximetry. bb Family accompanied patient. 01:51 Yun Diaz FNP-C is [facility]. snw 01:51 Lukas Ellsworth MD is Attending Physician. snw 01:59 Amy Cardenas, RN is Primary Nurse. ed1 02:00 Patient has correct armband on for positive identification. Bed in low position. Call ed1 light in reach. Adult w/ patient. Pulse ox on. NIBP on. 02:22 Speci-cath kit inserted, using sterile technique, 16 Fr., specimen obtained. returned ed1 hermelindo urine. Patient tolerated well. 02:52 Urine Culture Sent. ed1 02:54 Solis Mccain MD is Referral Physician. snw 02:54 No provider procedures requiring assistance completed. Patient did not have IV access ed1 during this emergency room visit. Administered Medications: 02:22 Drug: Simethicone 120 mg Route: PO; ed1 02:52 Follow up: Response: No adverse reaction; Pain is decreased ed1 02:54 Drug: Rocephin (cefTRIAXone) 1 grams Route: IM; Site: left ventrogluteal; ed1 Outcome: 02:54 Discharge ordered by MD. [email or web address] 02:54 Discharged to home ambulatory. ed1 02:54 Condition: good 02:54 Discharge instructions given to patient, Instructed on discharge instructions, follow up and referral plans. medication usage, Demonstrated understanding of instructions, follow-up care, medications, Prescriptions given X 2. 02:54 Patient left the ED. ed1 Signatures: Yun Diaz, AUTOMOTIVE MANUFACTURER-C AUTOMOTIVE MANUFACTURER-[place] Kaylee Bueno ds1 Emma Gimenez RN RN bb Amy Cardenas RN RN ed1
--- NOTE | 2019-04-30 02:58 | EDPHYS ---
Physician Documentation [facility] Name: Catie Gupta Age: 74 yrs Sex: Female : 1945 Arrival Date: 04/30/2019 Time: 01:14 Bed 16 Private MD: Solis Mccain ED Physician Lukas Ellsworth HPI: 04/30 02:20 This 74 yrs old Female presents to ER via Ambulatory with complaints of snw Abdominal Pain. 02:20 The patient presents with abdominal pain in the lower abdomen. Onset: The snw symptoms/episode began/occurred suddenly, 1 hour(s) ago, and became persistent. The symptoms do not radiate. Associated signs and symptoms: none. The symptoms are described as crampy, sharp. Severity of pain: At its worst the pain was severe. The patient has not experienced similar symptoms in the past. It is unknown whether or not the patient has recently seen a physician. Historical: - Allergies: 01:48 No Known Allergies; bb - PMHx: 01:48 Anxiety; Dementia; Diabetes - NIDDM; High Cholesterol; Hypertension; bb - PSHx: 01:48 Cholecystectomy; ; bb - Immunization history:: Adult Immunizations unknown. - Social history:: Smoking status: unknown. - Ebola Screening: : No symptoms or risks identified at this time. ROS: 02:20 Constitutional: Negative for fever, chills, and weight loss, Eyes: Negative for injury, snw pain, redness, and discharge, ENT: Negative for injury, pain, and discharge, Neck: Negative for injury, pain, and swelling, Cardiovascular: Negative for chest pain, palpitations, and edema, Respiratory: Negative for shortness of breath, cough, wheezing, and pleuritic chest pain, Back: Negative for injury and pain, : Negative for injury, bleeding, discharge, and swelling, MS/Extremity: Negative for injury and deformity, Skin: Negative for injury, rash, and discoloration, Neuro: Negative for headache, weakness, numbness, tingling, and seizure. 02:20 Abdomen/GI: Positive for abdominal pain, Negative for nausea, vomiting, and diarrhea, anorexia. Exam: 02:19 Constitutional: This is a well developed, well nourished patient who is awake, alert, snw and in no acute distress. Head/Face: Normocephalic, atraumatic. Eyes: Pupils equal round and reactive to light, extra-ocular motions intact. Lids and lashes normal. Conjunctiva and sclera are non-icteric and not injected. Cornea within normal limits. Periorbital areas with no swelling, redness, or edema. ENT: Nares patent. No nasal discharge, no septal abnormalities noted. Tympanic membranes are normal and external auditory canals are clear. Oropharynx with no redness, swelling, or masses, exudates, or evidence of obstruction, uvula midline. Mucous membranes moist. Neck: Trachea midline, no thyromegaly or masses palpated, and no cervical lymphadenopathy. Supple, full range of motion without nuchal rigidity, or vertebral point tenderness. No Meningismus. Chest/axilla: Normal chest wall appearance and motion. Nontender with no deformity. No lesions are appreciated. Cardiovascular: Regular rate and rhythm with a normal S1 and S2. No gallops, murmurs, or rubs. Normal PMI, no JVD. No pulse deficits. Respiratory: Lungs have equal breath sounds bilaterally, clear to auscultation and percussion. No rales, rhonchi or wheezes noted. No increased work of breathing, no retractions or nasal flaring. Back: No spinal tenderness. No costovertebral tenderness. Full range of motion. Skin: Warm, dry with normal turgor. Normal color with no rashes, no lesions, and no evidence of cellulitis. MS/ Extremity: Pulses equal, no cyanosis. Neurovascular intact. Full, normal range of motion. Neuro: Awake and alert, GCS 15, oriented to person, place, time, and situation. Cranial nerves II-XII grossly intact. Motor strength 5/5 in all extremities. Sensory grossly intact. Cerebellar exam normal. Normal gait. 02:19 Abdomen/GI: Inspection: abdomen appears normal, Bowel sounds: normal, Palpation: moderate abdominal tenderness, in the right lower quadrant and left lower quadrant. Vital Signs: 01:48 BP 122 / 70; Pulse 54; Resp 16 S; Temp 98(A); Pulse Ox 100% on R/A; Weight 81.65 kg bb (R); Pain 6/10; 02:51 BP 125 / 81; Pulse 63; Resp 16; Temp 97.5(O); Pulse Ox 100% on R/A; Pain 2/10; ed1 MDM: 01:51 Patient medically screened. snw 02:42 Data reviewed: vital signs, nurses notes. Data interpreted: Pulse oximetry: on room air snw is 100 %. Interpretation: normal. Counseling: I had a detailed discussion with the patient and/or guardian regarding: the historical points, exam findings, and any diagnostic results supporting the discharge/admit diagnosis, the need for outpatient follow up, to return to the emergency department if symptoms worsen or persist or if there are any questions or concerns that arise at home. Response to treatment: the patient's symptoms have markedly improved after treatment. Special discussion: Based on the patient's Hx, exam, and Dx evaluation, there is no indication for emergent surgery or inpatient Tx. It is understood by the patient/guardian that if the Sx's persist or worsen they need to return immediately for re-evaluation. Based on the history and exam findings, there is no indication for further emergent testing or inpatient evaluation. I discussed with the patient/guardian the need to see the primary care provider for further evaluation of the symptoms. 04/30 01:52 Order name: Urine Culture snw 04/30 01:52 Order name: Urine Microscopic Only; Complete Time: 02:53 snw 04/30 01:52 Order name: Cath; Complete Time: 02:21 w 04/30 01:53 Order name: Urine Culture EDMS Administered Medications: 02:22 Drug: Simethicone 120 mg Route: PO; ed1 02:52 Follow up: Response: No adverse reaction; Pain is decreased ed1 02:54 Drug: Rocephin (cefTRIAXone) 1 grams Route: IM; Site: left ventrogluteal; ed1 Disposition: 06:53 Co-signature as Attending Physician, Lukas Ellsworth MD I agree with the assessment and trae plan of care. Disposition: 04/30/19 02:54 Discharged to Home. Impression: Gas pain, Urinary tract infection, site not specified. - Condition is Stable. - Discharge Instructions: Abdominal Pain, Adult, Urinary Tract Infection, Adult, Intestinal Gas and Gas Pains, Pediatric, Rehydration, Elderly. - Prescriptions for Gas- X Ultra-Strength - take 1 unit by ORAL route 2-4 times daily; 1 box. Cipro 500 mg Oral Tablet - take 1 tablet by ORAL route every 12 hours for 10 days; 20 tablet. - Medication Reconciliation Form, Thank You Letter, Antibiotic Education, Prescription Opioid Use form. - Follow up: Solis Mccain; When: 2 - 3 days; Reason: Recheck today's complaints, Continuance of care, Re-evaluation by your physician. Follow up: Emergency Department; When: As needed; Reason: Worsening of condition. Signatures: Dispatcher [employer] EDIL Lukas Ellsworth MD MD cha Therrien, Shelly, STENCIL MAKER-C STENCIL MAKER-[employer] Emma Gimenez, RN RN Amy Blake RN RN ed1 Corrections: (The following items were deleted from the chart) 02:21 01:52 Urine Dipstick-Ancillary ordered. snw ed1 02:54 02:54 04/30/2019 02:54 Discharged to Home. Impression: Gas pain; Urinary tract ed1 infection, site not specified. Condition is Stable. Discharge Instructions: Intestinal Gas and Gas Pains, Pediatric, Abdominal Pain, Adult, Urinary Tract Infection, Adult, Rehydration, Elderly. Prescriptions for Gas-X Ultra-Strength - take 1 unit by ORAL route 2-4 times daily; 1 box, Cipro 500 mg Oral Tablet - take 1 tablet by ORAL route every 12 hours for 10 days; 20 tablet. and Forms are Medication Reconciliation Form, Thank You Letter, Antibiotic Education, Prescription Opioid Use. Follow up: Solis Mccain; When: 2 - 3 days; Reason: Recheck today's complaints, Continuance of care, Re-evaluation by your physician. Follow up: Emergency Department; When: As needed; Reason: Worsening of condition. snw
[2019-04-30] MEDS ORDERED: CEFTRIAXONE 1000 MG/VIAL ONE (03:12)
[2019-04-30] MEDS ORDERED: WATER FOR INJ,STERILE 10 ML ONE (03:12)
== END 2019-04-30 02:54 | disposition home or self-care (01) ==
LOC: ER 01:12
DX: N39.0 Urinary tract infection, site not specified (principal); R14.1 Gas pain; F41.9 Anxiety disorder, unspecified; F03.90 Unspecified dementia, unspecified severity, without behavioral disturbance, psychotic disturbance, mood disturbance, and anxiety; E11.9 Type 2 diabetes mellitus without complications; E78.00 Pure hypercholesterolemia, unspecified; I10 Essential (primary) hypertension
CPT/HCPCS: 81015; 87086; 87088; 96372; 99284